=== PATIENT | female | born 1935 | race Caucasian/White ===

== ENCOUNTER 2016-04-03 07:59 | Outpatient (CLI) | payer MEDICARE, OTHER ==
[2016-01-23 05:16] VITALS: BP 134/72
[2016-04-03 08:26] LABS: BASOPHILS % 0.2 (0.0-1.5); EOSINOPHILS % 1.5 % (0.0-6.8); LYMPHOCYTES # 1.6 # k/uL (0.6-4.0); MEAN CORPUSCULAR HEMOGLOBIN 28.4 pg (28.0-34.0); MONOCYTES # 0.3 # k/uL (0.0-0.9); MONOCYTES % 5.3 % (0.0-11.0); NEUTROPHILS # 3.9 # k/uL (1.4-7.7)
[2016-04-03 08:59] LABS: eGFR (African) > 60; eGFR (Non-African) > 60
--- NOTE | 2016-04-03 09:24 | Diagnostic Imaging Report ---
[facility] [address] [facility].[address] 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 FINDINGS: Examination of the chest in PA and lateral views demonstrates the lungs to be hyperinflated with increase in the AP diameter of the chest consistent with emphysema. Cardiac silhouette is within normal limits and the aorta is atherosclerotic. Transvenous pacemaker overlies the left hemithorax with leads overlying the right atrium and right ventricle. Lungs are free of coalescent infiltrate. IMPRESSION: Emphysema. Aortic atherosclerosis. Bipolar pacemaker. Electronically signed on Apr 03, 2016 8:39:48 AM [employer] by: Hemant CLAY
== END 2016-04-03 08:00 ==
LOC: LAB 07:59
PROVIDERS: ATTEND Surgery
DX: C49.A0 Gastrointestinal stromal tumor, unspecified site (principal); I48.91 Unspecified atrial fibrillation; J43.9 Emphysema, unspecified; I70.0 Atherosclerosis of aorta; Z95.0 Presence of cardiac pacemaker
CPT/HCPCS: 36415; 71020; 80053; 85025; 85610

== ENCOUNTER 2016-04-15 12:45 | Emergency (ER) | payer MEDICARE, OTHER ==
--- NOTE | 2016-04-15 13:28 | ED Physician Documentation ---
General Adult - HISTORIAN Historian: patient - HPI Stated Complaint: Burning with Urination Chief Complaint: General Adult Onset: hours (started today.) Timing: still present, pain lasting Further Comments: yes (patient has had some problems wit hematuria for some time. Recently has seen a urologist and found to have some tumors on her bladder. Has had some scrpaing done but no definitive diagnosis made. Patient is scheduled ot have some more procedures done in 4 days. Today started to have some dysuria and is concerned that hse might have an UTI.) - ROS CONST: no problems. denies: fever, chills - PAST HX Past History: A-Fib, other (HTN, bladder cander, TIA, PVD, vertigo) Surgeries/Procedures: other (left carotid endarterectomy, right carotid endaterectomy, breast bx, cataract extraction, pacemaker placement) Immunizations: referred to PCP Allergies/Adverse Reactions: Allergies Allergy/AdvReac Type Severity Reaction Status Date / Time naproxen [From Naprosyn] Allergy Verified 04/15/16 13:20 Penicillins Allergy Rash Verified 04/15/16 13:20 Home Medications: Ambulatory Orders Medication Instructions Recorded Ciprofloxacin HCl [Cipro] 250 mg PO BID #14 tablet 04/15/16 - SOCIAL HX Smoking History: non-smoker Alcohol Use: none Drug Use: none - FAMILY HX Family History: No - VITAL SIGNS Vital Signs: Vital Signs Temp Pulse Resp BP Pulse Ox 97 F L 88 18 180/99 97 04/15/16 12:45 04/15/16 12:45 04/15/16 12:45 04/15/16 12:45 04/15/16 12:45 - REVIEWED ASSESSMENTS Nursing Assessment Reviewed: Yes Vitals Reviewed: Yes General Adult Physical Exam - PHYSICAL EXAM GENERAL APPEARANCE: no distress NECK: normal inspection, supple RESPIRATORY: no resp distress, chest non-tender, breath sounds normal. No: wheezes, rales, rhonchi CVS: reg rate & rhythm, heart sounds normal, equal pulses ABDOMEN: soft, no organomegaly, normal bowel sounds, no abdominal bruit, no distension BACK: no CVA tenderness NEURO: oriented X3, mood/affect nml Discharge Clincal Impression: Dysuria Prescriptions: Ciprofloxacin HCl [Cipro] 250 mg PO BID #14 tablet Referrals: Donnell Gutierrez MD [Primary Care Provider] - 2 Days Additional Instructions: Drink a lot of fluids. Take Cipro as directed. Home Medications: Ambulatory Orders Ciprofloxacin HCl [Cipro] 250 mg PO BID #14 tablet 04/15/16 Condition: Stable Disposition: HOME, SELF-CARE Decision to Admit: NO Date of Decison to Admit: 04/15/16 Decision Time: 14:10
[2016-04-15 14:11] VITALS: BP 160/58
[2016-04-15 19:44] LABS: APPEARANCE,URINE CLEAR (CLEAR); COLOR,URINE YELLOW (YELLOW); OCCULT BLOOD,URINE 2+ (NEGATIVE); PH URINE 6.5 (5.0 - 8.0); UROBILINOGEN URINE 0.2 Eu (0.2-1.0)
== END 2016-04-15 14:08 | disposition home or self-care (01) ==
LOC: ED 12:45
DX: R30.0 Dysuria (principal)
CPT/HCPCS: 81002; 99283

== ENCOUNTER 2017-10-12 15:29 | Outpatient (CLI) | payer MEDICARE, OTHER | END 2017-10-12 15:32 | LOC: LABRHC 15:29 | PROVIDERS: ATTEND Family Medicine | DX: N39.0 Urinary tract infection, site not specified (principal) | CPT/HCPCS: 87086 ==

== ENCOUNTER 2018-10-13 09:18 | Emergency (ER) | payer MEDICARE, OTHER ==
[2018-10-13] MEDS ORDERED: DIPH,PERTUSS(ACELL),TET VAC/PF 0.5 ML DISP.SYRIN IM ONE (09:42)
[2018-10-13] MEDS ORDERED: ACETAMINOPHEN 325 MG TABLET PO ONE (10:31)
--- NOTE | 2018-10-13 10:31 | ED Physician Documentation ---
Fall - HISTORIAN Historian: patient, child (DAUGHTER) - HPI Chief Complaint: Fall Additional Information: Patient is an 83-year-old female who presents to the ER with family s/p fall. Patient states that she was walking down the stairs on her way to [employer] and lost her balance and fell face first. She has swelling to the forehead, abrasion to the nose, skin tear to the left hand. Abrasion to the left thigh with tenderness. Denies hip pain, chest pain, or neck pain. Onset: just prior to arrival (30 min [employer]) Where: home Context: slipped r: moderate Associated Symptoms:: no loss of consciousness Location of Pain/Injury: head (forehead, abrasion to the nose), lower extremity (left thigh) Injury to Right Extremity: none Injury to Left Extremity: hand (skin tear/abrasion) - ROS CONST: no problems NEURO: denies: dizziness MS/SKIN/LYMPH: denies: weakness, neck pain, back pain, ankle swelling EYES/ENT: none CVS/RESP: none GI/: denies: nausea, vomiting - PAST HX Past History: A-Fib, other (HTN, Bladder CA, TIA, PVD, Vertigo) Immunizations: UTD. denies: tetanus Allergies/Adverse Reactions: Allergies Allergy/AdvReac Type Severity Reaction Status Date / Time naproxen [From Naprosyn] Allergy Verified 10/13/18 10:45 Penicillins Allergy Rash Verified 10/13/18 10:45 Home Medications: Ambulatory Orders Medication Instructions Recorded Solifenacin Succinate [Vesicare] 5 mg PO DAILY 10/13/18 - SOCIAL HX Smoking History: non-smoker Alcohol Use: none Drug Use: none - FAMILY HX Family History: none - VITAL SIGNS Vital Signs: Vital Signs Temp Pulse Resp BP Pulse Ox 160/58 04/15/16 14:08 - REVIEWED ASSESSMENTS Nursing Assessment Reviewed: Yes Vitals Reviewed: Yes ED Results Lab/Radiology - Radiology Radiology Impressions: EXAMINATION: CT BRAIN W/O CONTRAST HISTORY: FALL THIS MORNING, SEVERE FRONTAL SWELLING, PT STATES HX OF VERTIGO (Hx) / ITS.REASON fall with frontal head injury- no loc- hematoma Note time : 10/13/2018 10:27: 57 AM User : Candelaria Abarca FALL THIS MORNING, SEVERE FRONTAL SWELLING, PT STATES HX OF VERTIGO (DICOM Hx) (DICOM Hx) TECHNIQUE: CT of the head was performed without contrast according to standard protocol. COMPARISON: None FINDINGS: No acute intra- or extra-axial fluid collections are identified. There is mild cerebral volume loss with associated ex vacuo ventricular dilatation. The basilar cisterns are patent. No mass effect or midline shift is seen. The diaz- white matter differentiation is normal. Periventricular white matter hypoattenuation likely represents sequelae of chronic small vessel disease. There is vascular calcification of the carotid siphons. Other than bilateral cataract extractions, the visible portions of the orbits, paranasal sinuses, and mastoids appear normal. No acute fracture is identified. There is right forehead soft tissue swelling. IMPRESSION: 1. No acute intracranial process. EXAMINATION: LT FEMUR 2VIEWS HISTORY: FALL THIS MORNING (Hx) / Note time : 10/13/2018 10:28:23 AM User : Candelaria Abarca FALL THIS MORNING (DICOM Hx) (DICOM Hx) COMPARISON: None FINDINGS: No acute fracture is identified. No soft tissue swelling is seen. IMPRESSION: No acute fracture identified. EXAMINATION: WRIST 3 VIEWS OR MORE HISTORY: FALL THIS MORNING (Hx) / Note time : 10/13/2018 10:28:34 AM User : Candelaria Abarca FALL THIS (DICOM Hx) (DICOM Hx) COMPARISON: None FINDINGS: The osseous structures are intact and well aligned without acute fracture or di slocation. The joint spaces are preserved. The bones are demineralized. No soft tissue swelling is seen. IMPRESSION: No acute fracture or dislocation identified. EXAMINATION: HAND 3 VIEWS OR MORE HISTORY: FALL THIS (Hx) / Note time : 10/13/2018 10:28:46 AM User : Candelaria Abarca FALL (DICOM Hx) (DICOM Hx) COMPARISON: None FINDINGS: The osseous structures are intact and well aligned without acute fracture or dislocation. There is mild osteoarthritis. The bones are demineralized. No soft tissue swelling is seen. IMPRESSION: No acute fracture or dislocation identified. - Orders Orders: ED Orders Category Date Time Status Apply/change dressing NOW Care 10/13/18 09:41 Active Cleanse with NS and Chlorhexid 1T Care 10/13/18 09:[address] BRAIN W/O CONTRAST Stat Exams 10/13/18 Ordered HAND 3 VIEWS OR MORE [RAD] Stat Exams 10/13/18 Ordered LT FEMUR 2VIEWS [RAD] Stat Exams 10/13/18 Ordered WRIST 3 VIEWS OR MORE [RAD] Stat Exams 10/13/18 Ordered Diph,Pertuss(Acell),Tet Vac/Pf [Adacel] Med 10/13/18 09:42 Discontinued 0.5 ml IM .ONCE ONE Fall Physical Exam - Physical Exam General Appearance: alert, mild distress Head: trauma (goose egg (swelling/bruising) to the forehead) Neck: non-tender Eye: TIM, lids & conjunct. nml ENT: nml external inspection, no dental injury, no oral injury, airway nml Resp/CVS: chest non-tender, no ecchymosis, breath sounds nml, heart sounds nml Abdomen: soft, normal bowel sounds Neuro: oriented x3, CN's nml as tested, sensation nml, motor nml, mood/affect nml, social media intern nml, social media intern symmetrical Skin: color nml, ecchymosis (forehead, nose; abrasion/skin tear to the left hand; abrasion to the left thigh) Back: normal inspection Extremities: atraumatic, pelvis stable, hips non-tender, no pedal edema, nml ROM, nml color/temp Joint: joints nml, nml ROM - Mika Coma Score Eyes Open: Spontaneous Speech: Oriented Motor: Obeys Commands Discharge Clincal Impression: Contusion of head, Skin tear of left hand without complication, Contusion of left thigh Referrals: Donnell Gutierrez MD [Primary Care Provider] - 2 Days Additional Instructions: HEAD INJURY AFTERCARE May take Tylenol for headache as needed Home and rest Apply ice pack to swelling Change positions slowly- may experience dizziness Rest/Sleep with head slightly elevated to decrease swelling Follow up with PCP next week for re-evaluation [facility] Keep abrasions clean and dry May use triple antibiotic ointment and dressing to prevent infection Condition: Good Disposition: 01 HOME, SELF-CARE Decision to Admit: NO Decision Time: 11:52
[2018-10-13 11:12] VITALS: BP 172/71
--- NOTE | 2018-10-13 12:02 | Diagnostic Imaging Report ---
TOSHA MITCHELL [facility] [address] [address] Report Submission Date: Oct 13, 2018 10:35:59 AM CDT Patient Study Name: BATOOL MAGAÑA Date: Oct 13, 2018 10:00:14 AM CDT Modality Type: DX Gender: F Description: WRIST 3 VIEWS OR MORE : 31 Institution: [facility] Physician: TOSHA MITCHELL EXAMINATION: WRIST 3 VIEWS OR MORE HISTORY: FALL THIS MORNING (Hx) / Note time : 10/13/2018 10:28:34 AM User : Candelaria Abarca FALL THIS (DICOM Hx) (DICOM Hx) COMPARISON: None FINDINGS: The osseous structures are intact and well aligned without acute fracture or dislocation. The joint spaces are preserved. The bones are demineralized. No soft tissue swelling is seen. IMPRESSION: No acute fracture or dislocation identified. Electronically signed on Oct 13, 2018 10:35:59 AM CDT by: Rolf CLAY
--- NOTE | 2018-10-13 12:03 | Diagnostic Imaging Report ---
TOSHA MITCHELL [facility] [address] [address] Report Submission Date: Oct 13, 2018 10:36:41 AM CDT Patient Study Name: BATOOL MAGAÑA Date: Oct 13, 2018 10:00:14 AM CDT Modality Type: DX Gender: F Description: HAND 3 VIEWS OR MORE : 31 Institution: [facility] Physician: TOSHA MITCHELL EXAMINATION: HAND 3 VIEWS OR MORE HISTORY: FALL THIS MORNING (Hx) / Note time : 10/13/2018 10:28:46 AM User : Candelaria Abarca FALL THIS (DICOM Hx) (DICOM Hx) COMPARISON: None FINDINGS: The osseous structures are intact and well aligned without acute fracture or dislocation. There is mild osteoarthritis. The bones are demineralized. No soft tissue swelling is seen. IMPRESSION: No acute fracture or dislocation identified. Electronically signed on Oct 13, 2018 10:36:41 AM CDT by: Rolf CLAY
--- NOTE | 2018-10-13 12:05 | Diagnostic Imaging Report ---
TOSHA MITCHELL [facility] [address] [facility] [address] [place] [address]. [address] Report Submission Date: Oct 13, 2018 10:34:53 AM CDT Patient Study Name: BATOOL MAGAÑA Date: Oct 13, 2018 9:51:43 AM CDT Modality Type: CT\SR Gender: F Description: CT BRAIN W/O CONTRAST : 31 Institution: [facility] Physician: TOSHA MITCHELL EXAMINATION: CT BRAIN W/O CONTRAST HISTORY: FALL THIS MORNING, SEVERE FRONTAL SWELLING, PT STATES HX OF VERTIGO (Hx) / ITS.REASON fall with frontal head injury- no loc- hematoma Note time : 10/13/2018 10:27:57 AM User : Candelaria Abarca FALL THIS MORNING, SEVERE FRONTAL SWELLING, PT STATES HX OF VERTIGO (DICOM Hx) (DICOM Hx) TECHNIQUE: CT of the head was performed without contrast according to standard protocol. COMPARISON: None FINDINGS: No acute intra- or extra-axial fluid collections are identified. There is mild cerebral volume loss with associated ex vacuo ventricular dilatation. The basilar cisterns are patent. No mass effect or midline shift is seen. The diaz- white matter differentiation is normal. Periventricular white matter hypoattenuation likely represents sequelae of chronic small vessel disease. There is vascular calcification of the carotid siphons. Other than bilateral cataract extractions, the visible portions of the orbits, paranasal sinuses, and mastoids appear normal. No acute fracture is identified. There is right forehead soft tissue swelling. IMPRESSION: 1. No acute intracranial process. Electronically signed on Oct 13, 2018 10:34:53 AM CDT by: Rolf CLAY
--- NOTE | 2018-10-13 12:07 | Diagnostic Imaging Report ---
TOSHA MITCHELL [facility] [address] [address] Report Submission Date: Oct 13, 2018 10:35:30 AM CDT Patient Study Name: BATOOL MAGAÑA Date: Oct 13, 2018 10:00:14 AM CDT Modality Type: DX Gender: F Description: LT FEMUR 2VIEWS : 31 Institution: [facility] Physician: TOSHA MITCHELL EXAMINATION: LT FEMUR 2VIEWS HISTORY: FALL THIS MORNING (Hx) / Note time : 10/13/2018 10:28:23 AM User : Candelaria Abarca FALL THIS MORNING (DICOM Hx) (DICOM Hx) COMPARISON: None FINDINGS: No acute fracture is identified. No soft tissue swelling is seen. IMPRESSION: No acute fracture identified. Electronically signed on Oct 13, 2018 10:35:30 AM CDT by: Rolf CLAY
== END 2018-10-13 11:05 | disposition home or self-care (01) ==
LOC: ED 09:18
DX: S60.222A Contusion of left hand, initial encounter (principal); S70.12XA Contusion of left thigh, initial encounter; S61.412A Laceration without foreign body of left hand, initial encounter; W10.9XXA Fall (on) (from) unspecified stairs and steps, initial encounter; Y93.01 Activity, walking, marching and hiking; Y92.22 Religious institution as the place of occurrence of the external cause
CPT/HCPCS: 70450; 73110; 73130; 73552; 90471; 90715; 99284

== ENCOUNTER 2018-10-17 12:49 | Emergency (ER) | payer MEDICARE, OTHER ==
--- NOTE | 2018-10-17 12:52 | ED Physician Documentation ---
General Adult - HISTORIAN Historian: patient - HPI Stated Complaint: fall and left elbow pain Chief Complaint: Fall Onset: hours (2) Timing: still present Severity: mild Further Comments: yes (She did fall Sunday and hit her face and head. Today she did trip and fell hitting her left elbow and knee . Denies any dizziness. No LOC.) Last known Well Code/Unknown Code: Unknown - ROS CONST: no problems EYES/ENT: none CVS/RESP: none GI/: none MS/SKIN/LYMPH: none - PAST HX Past History: other (hyperlipidemia , Hypothyroidism ) Immunizations: UTD Allergies/Adverse Reactions: Allergies Allergy/AdvReac Type Severity Reaction Status Date / Time naproxen [From Naprosyn] Allergy Verified 10/13/18 10:45 Penicillins Allergy Rash Verified 10/13/18 10:45 Home Medications: Ambulatory Orders Medication Instructions Recorded Solifenacin Succinate [Vesicare] 5 mg PO DAILY 10/13/18 Gabapentin 1 tab PO DAILY 10/17/18 - SOCIAL HX Smoking History: non-smoker Alcohol Use: none Drug Use: none - FAMILY HX Family History: No - VITAL SIGNS Vital Signs: Vital Signs Temp Pulse Resp BP Pulse Ox 172/71 10/13/18 11:05 - REVIEWED ASSESSMENTS Nursing Assessment Reviewed: Yes Vitals Reviewed: Yes Progress - Progress Progress: 1430: discussed results with pt. She is wanting transfer to [place] if needed DG 1515: Discussed case with Pili at [facility] for possible transfer DG 1525: Dr Frausto is accepting pt to [facility] DG 1527: Pain is 4/10 DG General Adult Physical Exam - PHYSICAL EXAM GENERAL APPEARANCE: no distress EENT: eye inspection normal, ENT inspection normal, pharynx normal, no signs of dehydration NECK: normal inspection RESPIRATORY: no resp distress, chest non-tender, breath sounds normal CVS: reg rate & rhythm, heart sounds normal ABDOMEN: soft, normal bowel sounds, no distension, non-tender BACK: normal inspection SKIN: warm/dry, other (swelling on left elbow 2 small skin tears Decreased ROM due to pain left elbow. Pain left knee 3 cm bruise on lateral side of knee . old bruise over entire right side of face and forehead ) EXTREMITIES: non-tender, tenderness (knee --- swelling on left elbow two small skin tears. Pulses + cap refill + and helmet hat puncher on hand equal. Decreased and painful ROM with elbow movement ) NEURO: oriented X3 Discharge Clincal Impression: Humeral distal fracture Qualifiers: Encounter type: initial encounter Fracture type: closed Fracture morphology: other fracture Fracture alignment: nondisplaced Laterality: left Qualified Code(s): S42.495A - Other nondisplaced fracture of lower end of left humerus, initial encounter for closed fracture Referrals: Donnell Gutierrez MD [Primary Care Provider] - 2 Days Condition: Fair Disposition: 02 XFER SHT-TRM HOSP Decision to Admit: NO Date of Decison to Admit: 10/17/18 Decision Time: 15:30
[2018-10-17] MEDS ORDERED: fentaNYL CITRATE/PF 100 MCG/2 ML INJ. IV ONE (14:09)
[2018-10-17] MEDS ORDERED: 0.9 % SODIUM CHLORIDE 1,000 ML IV ONE (14:09)
[2018-10-17 14:31] LABS: eGFR (Non-African) > 60
[2018-10-17 14:40] LABS: BASOPHILS % 0.4 % (0.0-1.5); NEUTROPHILS # 8.8 # k/uL (1.4-7.7)
[2018-10-17] MEDS ORDERED: fentaNYL CITRATE/PF 100 MCG/2 ML INJ. IVP ONE (16:57)
[2018-10-17 17:10] VITALS: BP 149/53
--- NOTE | 2018-10-17 19:43 | Diagnostic Imaging Report ---
EDGAR CHINCHILLA [facility] [address] [facility] [address] [address] [place], [place]. [address] Report Submission Date: Oct 17, 2018 2:02:31 PM CDT Patient Study Name: BATOOL MAGAÑA Date: Oct 17, 2018 1:15:18 PM CDT Modality Type: DX Gender: F Description: FOREARM 2 VIEWS : 31 Institution: [facility] Physician: EDGAR CHINCHILLA Examination: Plain film left forearm History: BRUISING AND CONTUSIONS AFTER FALL TODAY Comparison exams: None available Findings: 2 views of the left radius and ulna demonstrates osteopenia. No evidence for radial or ulnar fracture line. Articular degenerative changes. Fracture lucency with displacement involving the distal humerus extending to the articular surface. Overlying soft tissue swelling. Impression: Complex distal humeral fracture. Electronically signed on Oct 17, 2018 2:02:31 PM CDT by: Luis CLAY
--- NOTE | 2018-10-17 19:43 | Diagnostic Imaging Report ---
EDGAR CHINCHILLA [facility] [address] [facility] [address] [place], [place]. [address] Report Submission Date: Oct 17, 2018 2:02:37 PM CDT Patient Study Name: BATOOL MAGAÑA Date: Oct 17, 2018 1:15:18 PM CDT Modality Type: DX Gender: F Description: KNEE 3 VIEWS : 31 Institution: [facility] Physician: EDGAR CHINCHILLA Examination: Plain film left knee History: BRUISING AFTER FALL TODAY Findings: 3 views of the left knee demonstrates osteopenia. Mild degenerative spurring. No fracture. No dislocation. No joint effusion. No soft tissue irregularity. Impression: Osteopenia and mild degenerative changes. No acute appearing osseous abnormality Electronically signed on Oct 17, 2018 2:02:37 PM CDT by: Luis CLAY
--- NOTE | 2018-10-17 19:43 | Diagnostic Imaging Report ---
EDGAR CHINCHILLA [facility] [address] [facility] [address] [place], [place]. [address] Report Submission Date: Oct 17, 2018 2:02:26 PM CDT Patient Study Name: BATOOL MAGAÑA Date: Oct 17, 2018 1:15:16 PM CDT Modality Type: DX Gender: F Description: ELBOW 3 VIEWS : 31 Institution: [facility] Physician: EDGAR CHINCHILLA Examination: Plain film left elbow History: BRUISING AND CONTUSIONS AFTER FALL TODAY Comparison exams: None provided Findings: 2 views of the left elbow demonstrates osteopenia. Fracture lucency with displacement involving the distal humerus extending to the articular surface. Overlying soft tissue swelling. Radius and ulna appear to be intact. Impression: Complex distal humeral fracture. Electronically signed on Oct 17, 2018 2:02:26 PM CDT by: Luis CLAY
== END 2018-10-17 17:00 | disposition short-term general hospital (02) ==
LOC: ED 12:49
DX: S42.495A Other nondisplaced fracture of lower end of left humerus, initial encounter for closed fracture (principal); W01.10XA Fall on same level from slipping, tripping and stumbling with subsequent striking against unspecified object, initial encounter
CPT/HCPCS: 73080; 73090; 73562; 80053; 85025; 85610; 96361; 96374; 96376; 99285; J3010; J7030; S1016

== ENCOUNTER 2018-10-21 15:05 | Inpatient (IN) | payer MEDICARE, OTHER ==
[2018-10-21 15:53] VITALS: BMI 20.9
--- NOTE | 2018-10-21 18:28 | History and Physical Report ---
History of Present Illnes - History of Present Illness Reason for Visit: PT and OT post L humeral fx History of Present Illness: 83-year-old white female who on fell and sustained a left distal humeral fracture. Patient has fallen on the previous day and sustained some patient contusions. Patient does have a vestibular disturbance and does have fairly frequent falls related to this. Patient is currently living at home by herself does provide for all of her daily living cares herself him. Patient underwent an open reduction until fixation of her comminuted intra-articular distal fracture. Patient did not have any intraoperative for postoperative complications. Patient was transferred to this institution for further rehab services. Patient is right handed - Past Medical History Cardiac: HTN, Other (tachy/bradycardia syndrome) [employer]: CVA Heme/Onc: Cancer (colon) ENT: Other (vetibular dysfunction) - Past Surgical History Past Surgical History: Cataract Removal, Other (carotid endarterectomy, D&C, colectomy, pacemaker placement) - Past Family History Mother Family History: DM, Father Family History: CVA, 7 brothers Family History: DM 7 sisters Family History: DM - Past Social History Smoke: No Occupation: retired Alcohol: None Drugs: None Lives: Alone Domestic Violence: Negative - Health Maintenance Health Maintenance: Cholesterol, Influenza Vaccine, Pneumococcal Vaccine Influenza Vaccine: Current for this Influenza Season Pneumonia Vaccine: Yes (Pneumo vac 13 and 23) Resuscitation Status: Resusciation Status Resuscitation Status Do Not Resuscitate - Unable to Obtain History Unable to Obtain: No Review of Systems - Review of Systems Constitutional: negative: Fever, Chills Eyes: negative: vision change, conjunctivae inflammation ENT: Other (vertigo). negative: Ear Pain, Ear Discharge Respiratory: negative: Cough, Dry, Shortness of Breath, Hemoptysis, SOB with Excertion, Pleuritic Pain Cardiovascular: Palpitations, Orthopnea. negative: Chest Pain Gastrointestinal: Constipation. negative: Nausea, Vomiting, Abdominal Pain, Diarrhea, Melena, Hematochezia Genitourinary: negative: Dysuria, Frequency, Incontinence, Hematuria, Retention Musculoskeletal: Neck Pain (improved) Skin: Other (multiple echymotic area to arms and face). negative: Rash Neurological: negative: Weakness, Numbness, Change in Speech, Seizures - Medications/Allergies Allergies/Adverse Reactions: Allergies Allergy/AdvReac Type Severity Reaction Status Date / Time naproxen [From Naprosyn] Allergy Verified 10/13/18 10:45 Penicillins Allergy Rash Verified 10/13/18 10:45 Home Medications: Home Medications Acetaminophen [Pain Relief] 1,000 mg PO Q8 PRN 10/21/18 Aspirin 81 mg PO QDAY 10/21/18 Calcium Carbonate/Vitamin D3 [Calcium 250-D Tablet] 1 each PO BID 10/21/18 Cholecalciferol (Vitamin D3) [Vitamin D3] 2,000 unit PO DAILY 10/21/18 Citalopram Hydrobromide [Celexa] 20 mg PO QD 10/21/18 Clonazepam 0.5 mg PO TID PRN 10/21/18 Fesoterodine Fumarate [Toviaz] 4 mg PO HS 10/21/18 Multivit-Min/Iron/Folic/Lutein [Centrum Silver Women Tablet] 1 each PO DAILY 10/21/18 Current Inpatient Medications: Current Inpatient Medications Acetaminophen (Tylenol Extra Strength) 1,000 mg PO Q8 PRN PRN Reason: MILD PAIN OR TEMP > 101 Amlodipine Besylate (Norvasc) 2.5 mg PO DAILY [facility] Aspirin (Leda) 81 mg PO QDAY [facility] Atorvastatin Calcium (Lipitor) 20 mg PO DAILY [facility] Cholecalciferol (Vitamin D-3) 2,000 unit PO DAILY [facility] Citalopram Hydrobromide (Celexa) 20 mg PO QD [facility] Clonazepam (Klonopin) 0.5 mg PO TID PRN PRN Reason: Anxiety Gabapentin (Neurontin) mg PO DAILY [facility] Multivitamins (Tab-A-Renae) 1 each PO DAILY [facility] Exam - Exam Vital Signs: Vital Signs (72 hours) 10/21/18 10/21/18 15:43 15:45 Temperature 99.2 F 99.2 F Pulse Rate [ 94 H 94 H Right] Respiratory 22 22 Rate Blood Pressure 118/94 118/94 [Right Arm] O2 Sat by Pulse 97 97 Oximetry General: Alert, Oriented to Person, Oriented to Place, Oriented to Time, Cooperative, No acute distress HEENT: Atraumatic, PERRLA, Mouth Mucous membr. moist/Ray, Dentition Normal, Decreased Hearing Acuity Neck: Normal Range of Motion, Other (no JVD). No: Stridor, Lymphadenopathy Carotids: WNL Thyroid: WNL Lungs: Clear to auscultation, Normal air movement, Speaks full Sentences. No: Wheezes, Rales, Rhonchi Cardiovascular: Regular rate, Normal S1, Normal S2, No murmurs Peripheral Edema: none Peripheral Pulses: intact Abdomen: Normal bowel sounds, Soft, No tenderness, No hepatospenomegaly, No masses. No: Distended Integumentary: Normal, [place], Warm, Other (swelling and ecchymosis to left hand, resolving contusion/ecchymosis to the periorbital area of the face) Extremities: No clubbing, No cyanosis, No edema, Normal pulses Neurological: Normal gait, Normal speech, Strength Equal Bilat, Normal tone, Sensation intact, Cranial nerves 3-12 NL, Reflexes 2+ Psych/Mental Status: Mental status NL, Mood NL, Appropriate Affect, Intact Judgment Assessment/Plan - Assessment/Plan (1) Closed left humeral fracture Status: Acute Current Visit: Yes Qualifiers: Fracture morphology: comminuted Fracture healing: with routine healing (2) Essential hypertension Status: Chronic Current Visit: Yes Plan: continue home meds (3) Sick sinus syndrome Status: Acute Current Visit: Yes (4) History of colon cancer Status: Resolved Current Visit: Yes (5) Status post CVA Status: Resolved Current Visit: Yes (6) Vestibular dysfunction Status: Acute Current Visit: Yes Qualifiers: Laterality: unspecified laterality Qualified Code(s): H83.2X9 - Labyrinthine dysfunction, unspecified ear Narrative Support Text: continue with supportive care VTE Assessment - RISK FACTOR SCORE VTE RISK FACTOR SCORES: AGE OVER 60 YEARS, ANTICIPATED BED CONFINEMENT OR IMMOBILIZATION > 24 HOURS - RISK VTE MODERATE RISK: SCORE OF 2 (RISK PROXIMAL DVT 2-4%) PROPHYAXIS NEEDED
[2018-10-21] MEDS: CITALOPRAM HYDROBROMIDE 20 MG TABLET PO SCH (18:45)
[2018-10-22] MEDS ORDERED: ASPIRIN EC 81 MG TABLET.DR PO ONE (07:31)
[2018-10-22] MEDS ORDERED: PANTOPRAZOLE SODIUM 40 MG TABLET.DR PO ONE (08:17)
[2018-10-22] MEDS ORDERED: IRON PO SCH (09:00)
[2018-10-22] MEDS ORDERED: ATORVASTATIN CALCIUM 20 MG TABLET PO SCH (09:00)
[2018-10-22] MEDS ORDERED: LUTEIN PO SCH (09:00)
[2018-10-22] MEDS ORDERED: [UNRECOGNIZED DRUG - OTHER] PO SCH (09:00)
[2018-10-22] MEDS ORDERED: FOLIC PO SCH (09:00)
[2018-10-22] MEDS ORDERED: MULTIVIT MIN PO SCH (09:00)
[2018-10-22] MEDS: MULTIVITAMIN 1 EACH TABLET PO SCH (09:04)
[2018-10-22] MEDS: CHOLECALCIFEROL (VIT-D3) 1,000 UNIT TABLET PO SCH (09:04)
[2018-10-22] MEDS: ASPIRIN 81 MG CHEW TAB PO SCH (09:04)
[2018-10-22] MEDS: amLODIPine BESYLATE 5 MG TABLET PO SCH (09:05)
[2018-10-22] MEDS: ENOXAPARIN SODIUM 30 MG/0.3 ML DISP.SYRIN SQ SCH (18:46)
[2018-10-22] MEDS: CITALOPRAM HYDROBROMIDE 20 MG TABLET PO SCH (18:47)
[2018-10-22] MEDS: clonazePAM 0.5 MG TABLET PO PRN (20:28)
[2018-10-22] MEDS: ATORVASTATIN CALCIUM 20 MG TABLET PO SCH (20:28)
[2018-10-23] MEDS: PANTOPRAZOLE SODIUM 40 MG TABLET.DR PO SCH (06:08)
[2018-10-23] MEDS: ENOXAPARIN SODIUM 30 MG/0.3 ML DISP.SYRIN SQ SCH (09:24)
[2018-10-23] MEDS: MULTIVITAMIN 1 EACH TABLET PO SCH (09:24)
[2018-10-23] MEDS: ASPIRIN 81 MG CHEW TAB PO SCH (09:24)
[2018-10-23] MEDS: amLODIPine BESYLATE 5 MG TABLET PO SCH (09:24)
[2018-10-23] MEDS: CHOLECALCIFEROL (VIT-D3) 1,000 UNIT TABLET PO SCH (09:24)
[2018-10-23] MEDS: GABAPENTIN 100 MG CAPSULE PO SCH ×2 (13:38→19:16)
[2018-10-23] MEDS: CITALOPRAM HYDROBROMIDE 20 MG TABLET PO SCH (18:32)
[2018-10-23] MEDS: ATORVASTATIN CALCIUM 20 MG TABLET PO SCH (20:33)
[2018-10-23] MEDS: clonazePAM 0.5 MG TABLET PO PRN (20:33)
[2018-10-24] MEDS: PANTOPRAZOLE SODIUM 40 MG TABLET.DR PO SCH (06:00)
[2018-10-24] MEDS: CHOLECALCIFEROL (VIT-D3) 1,000 UNIT TABLET PO SCH (09:18)
[2018-10-24] MEDS: GABAPENTIN 100 MG CAPSULE PO SCH (09:18)
[2018-10-24] MEDS: amLODIPine BESYLATE 5 MG TABLET PO SCH (09:18)
[2018-10-24] MEDS: MULTIVITAMIN 1 EACH TABLET PO SCH (09:18)
[2018-10-24] MEDS: ASPIRIN 81 MG CHEW TAB PO SCH (09:18)
[2018-10-24] MEDS: ENOXAPARIN SODIUM 30 MG/0.3 ML DISP.SYRIN SQ SCH (09:18)
[2018-10-24] MEDS: CITALOPRAM HYDROBROMIDE 20 MG TABLET PO SCH (18:13)
[2018-10-24] MEDS: ATORVASTATIN CALCIUM 20 MG TABLET PO SCH (22:45)
[2018-10-24] MEDS: ACETAMINOPHEN 500 MG TABLET PO PRN (23:21)
[2018-10-25] MEDS: PANTOPRAZOLE SODIUM 40 MG TABLET.DR PO SCH (06:25)
[2018-10-25] MEDS: ASPIRIN 81 MG CHEW TAB PO SCH (08:39)
[2018-10-25] MEDS: ENOXAPARIN SODIUM 30 MG/0.3 ML DISP.SYRIN SQ SCH (08:40)
[2018-10-25] MEDS: amLODIPine BESYLATE 5 MG TABLET PO SCH (08:40)
[2018-10-25] MEDS: GABAPENTIN 100 MG CAPSULE PO SCH (08:40)
[2018-10-25] MEDS: MULTIVITAMIN 1 EACH TABLET PO SCH (08:40)
[2018-10-25] MEDS: CHOLECALCIFEROL (VIT-D3) 1,000 UNIT TABLET PO SCH (08:45)
[2018-10-25] MEDS: CITALOPRAM HYDROBROMIDE 20 MG TABLET PO SCH (18:00)
[2018-10-25] MEDS: ATORVASTATIN CALCIUM 20 MG TABLET PO SCH (20:00)
[2018-10-25] MEDS: ACETAMINOPHEN 500 MG TABLET PO PRN (21:35)
[2018-10-26] MEDS: PANTOPRAZOLE SODIUM 40 MG TABLET.DR PO SCH (05:58)
[2018-10-26] MEDS: amLODIPine BESYLATE 5 MG TABLET PO SCH (08:43)
[2018-10-26] MEDS: ASPIRIN 81 MG CHEW TAB PO SCH (08:44)
[2018-10-26] MEDS: CHOLECALCIFEROL (VIT-D3) 1,000 UNIT TABLET PO SCH (08:44)
[2018-10-26] MEDS: MULTIVITAMIN 1 EACH TABLET PO SCH (08:44)
[2018-10-26] MEDS: GABAPENTIN 100 MG CAPSULE PO SCH (08:45)
[2018-10-26] MEDS: ENOXAPARIN SODIUM 30 MG/0.3 ML DISP.SYRIN SQ SCH (08:46)
[2018-10-26] MEDS: CITALOPRAM HYDROBROMIDE 20 MG TABLET PO SCH (18:16)
[2018-10-26] MEDS: ATORVASTATIN CALCIUM 20 MG TABLET PO SCH (20:45)
[2018-10-26] MEDS: ACETAMINOPHEN 500 MG TABLET PO PRN (20:45)
[2018-10-27] MEDS: PANTOPRAZOLE SODIUM 40 MG TABLET.DR PO SCH (06:10)
[2018-10-27] MEDS: ASPIRIN 81 MG CHEW TAB PO SCH (08:34)
[2018-10-27] MEDS: CHOLECALCIFEROL (VIT-D3) 1,000 UNIT TABLET PO SCH (08:34)
[2018-10-27] MEDS: GABAPENTIN 100 MG CAPSULE PO SCH (08:34)
[2018-10-27] MEDS: ENOXAPARIN SODIUM 30 MG/0.3 ML DISP.SYRIN SQ SCH (08:34)
[2018-10-27] MEDS: MULTIVITAMIN 1 EACH TABLET PO SCH (08:34)
[2018-10-27] MEDS: amLODIPine BESYLATE 5 MG TABLET PO SCH (08:35)
[2018-10-27] MEDS: CITALOPRAM HYDROBROMIDE 20 MG TABLET PO SCH (20:05)
[2018-10-27] MEDS: ATORVASTATIN CALCIUM 20 MG TABLET PO SCH (20:05)
[2018-10-27] MEDS: ACETAMINOPHEN 500 MG TABLET PO PRN (20:05)
[2018-10-28] MEDS: PANTOPRAZOLE SODIUM 40 MG TABLET.DR PO SCH (06:31)
[2018-10-28 07:00] LABS: BASOPHILS % 0.3 % (0.0-1.5); NEUTROPHILS # 4.4 # k/uL (1.4-7.7)
[2018-10-28 07:01] LABS: eGFR (Non-African) > 60
[2018-10-28] MEDS: ASPIRIN 81 MG CHEW TAB PO SCH (09:24)
[2018-10-28] MEDS: ENOXAPARIN SODIUM 30 MG/0.3 ML DISP.SYRIN SQ SCH (09:24)
[2018-10-28] MEDS: MULTIVITAMIN 1 EACH TABLET PO SCH (09:24)
[2018-10-28] MEDS: CHOLECALCIFEROL (VIT-D3) 1,000 UNIT TABLET PO SCH (09:25)
[2018-10-28] MEDS: GABAPENTIN 100 MG CAPSULE PO SCH (09:25)
[2018-10-28] MEDS: amLODIPine BESYLATE 5 MG TABLET PO SCH (09:25)
[2018-10-28] MEDS: CITALOPRAM HYDROBROMIDE 20 MG TABLET PO SCH (18:18)
[2018-10-28] MEDS: ATORVASTATIN CALCIUM 20 MG TABLET PO SCH (20:22)
[2018-10-28] MEDS: ACETAMINOPHEN 500 MG TABLET PO PRN (20:22)
[2018-10-29] MEDS: PANTOPRAZOLE SODIUM 40 MG TABLET.DR PO SCH (06:32)
[2018-10-29] MEDS: ASPIRIN 81 MG CHEW TAB PO SCH (08:36)
[2018-10-29] MEDS: ENOXAPARIN SODIUM 30 MG/0.3 ML DISP.SYRIN SQ SCH (08:37)
[2018-10-29] MEDS: amLODIPine BESYLATE 5 MG TABLET PO SCH (08:39)
[2018-10-29] MEDS: MULTIVITAMIN 1 EACH TABLET PO SCH (08:39)
[2018-10-29] MEDS: GABAPENTIN 100 MG CAPSULE PO SCH (08:39)
[2018-10-29] MEDS: CHOLECALCIFEROL (VIT-D3) 1,000 UNIT TABLET PO SCH (08:40)
[2018-10-29] MEDS: CITALOPRAM HYDROBROMIDE 20 MG TABLET PO SCH (18:10)
[2018-10-29] MEDS: ACETAMINOPHEN 500 MG TABLET PO PRN (20:04)
[2018-10-29] MEDS: ATORVASTATIN CALCIUM 20 MG TABLET PO SCH (20:04)
[2018-10-30] MEDS: PANTOPRAZOLE SODIUM 40 MG TABLET.DR PO SCH (05:45)
[2018-10-30] MEDS: ONDANSETRON HCL 4 MG TAB.RAPDIS PO PRN (07:42)
[2018-10-30] MEDS: MULTIVITAMIN 1 EACH TABLET PO SCH (09:36)
[2018-10-30] MEDS: amLODIPine BESYLATE 5 MG TABLET PO SCH (09:36)
[2018-10-30] MEDS: ASPIRIN 81 MG CHEW TAB PO SCH (09:36)
[2018-10-30] MEDS: GABAPENTIN 100 MG CAPSULE PO SCH (09:36)
[2018-10-30] MEDS: ENOXAPARIN SODIUM 30 MG/0.3 ML DISP.SYRIN SQ SCH (09:36)
[2018-10-30] MEDS: CHOLECALCIFEROL (VIT-D3) 1,000 UNIT TABLET PO SCH (09:36)
[2018-10-30] MEDS: CITALOPRAM HYDROBROMIDE 20 MG TABLET PO SCH (18:21)
[2018-10-30] MEDS: ATORVASTATIN CALCIUM 20 MG TABLET PO SCH (21:03)
[2018-10-31] MEDS: PANTOPRAZOLE SODIUM 40 MG TABLET.DR PO SCH (06:17)
[2018-10-31] MEDS: ENOXAPARIN SODIUM 30 MG/0.3 ML DISP.SYRIN SQ SCH (08:30)
[2018-10-31] MEDS: CHOLECALCIFEROL (VIT-D3) 1,000 UNIT TABLET PO SCH (08:31)
[2018-10-31] MEDS: GABAPENTIN 100 MG CAPSULE PO SCH (08:31)
[2018-10-31] MEDS: ASPIRIN 81 MG CHEW TAB PO SCH (08:31)
[2018-10-31] MEDS: MULTIVITAMIN 1 EACH TABLET PO SCH (08:31)
[2018-10-31] MEDS: amLODIPine BESYLATE 5 MG TABLET PO SCH (08:31)
[2018-10-31] MEDS: CITALOPRAM HYDROBROMIDE 20 MG TABLET PO SCH (18:33)
[2018-10-31] MEDS: ACETAMINOPHEN 500 MG TABLET PO PRN (19:46)
[2018-10-31] MEDS: ATORVASTATIN CALCIUM 20 MG TABLET PO SCH (19:46)
[2018-11-01] MEDS: PANTOPRAZOLE SODIUM 40 MG TABLET.DR PO SCH (05:23)
[2018-11-01] MEDS: GABAPENTIN 100 MG CAPSULE PO SCH (08:03)
[2018-11-01] MEDS: ONDANSETRON HCL 4 MG TAB.RAPDIS PO PRN (08:04)
[2018-11-01] MEDS: amLODIPine BESYLATE 5 MG TABLET PO SCH (08:04)
[2018-11-01] MEDS: CHOLECALCIFEROL (VIT-D3) 1,000 UNIT TABLET PO SCH (08:05)
[2018-11-01] MEDS: ENOXAPARIN SODIUM 30 MG/0.3 ML DISP.SYRIN SQ SCH (08:06)
[2018-11-01] MEDS: ASPIRIN 81 MG CHEW TAB PO SCH (08:07)
[2018-11-01] MEDS: MULTIVITAMIN 1 EACH TABLET PO SCH (08:12)
[2018-11-01] MEDS: CITALOPRAM HYDROBROMIDE 20 MG TABLET PO SCH (17:22)
[2018-11-01] MEDS: ATORVASTATIN CALCIUM 20 MG TABLET PO SCH (21:10)
[2018-11-01] MEDS: ACETAMINOPHEN 500 MG TABLET PO PRN (21:10)
[2018-11-02] MEDS: PANTOPRAZOLE SODIUM 40 MG TABLET.DR PO SCH (06:22)
[2018-11-02] MEDS: CHOLECALCIFEROL (VIT-D3) 1,000 UNIT TABLET PO SCH (08:22)
[2018-11-02] MEDS: ACETAMINOPHEN 500 MG TABLET PO PRN ×2 (08:22→20:37)
[2018-11-02] MEDS: amLODIPine BESYLATE 5 MG TABLET PO SCH (08:23)
[2018-11-02] MEDS: ASPIRIN 81 MG CHEW TAB PO SCH (08:23)
[2018-11-02] MEDS: GABAPENTIN 100 MG CAPSULE PO SCH ×3 (08:24→18:05)
[2018-11-02] MEDS: ENOXAPARIN SODIUM 30 MG/0.3 ML DISP.SYRIN SQ SCH (08:24)
[2018-11-02] MEDS: MULTIVITAMIN 1 EACH TABLET PO SCH (08:24)
[2018-11-02] MEDS: CITALOPRAM HYDROBROMIDE 20 MG TABLET PO SCH (18:06)
[2018-11-02] MEDS: ATORVASTATIN CALCIUM 20 MG TABLET PO SCH (20:37)
[2018-11-03] MEDS: PANTOPRAZOLE SODIUM 40 MG TABLET.DR PO SCH (06:06)
[2018-11-03] MEDS: GABAPENTIN 100 MG CAPSULE PO SCH ×3 (09:15→18:24)
[2018-11-03] MEDS: ASPIRIN 81 MG CHEW TAB PO SCH (09:15)
[2018-11-03] MEDS: ENOXAPARIN SODIUM 30 MG/0.3 ML DISP.SYRIN SQ SCH (09:15)
[2018-11-03] MEDS: amLODIPine BESYLATE 5 MG TABLET PO SCH (09:15)
[2018-11-03] MEDS: CHOLECALCIFEROL (VIT-D3) 1,000 UNIT TABLET PO SCH (09:16)
[2018-11-03] MEDS: MULTIVITAMIN 1 EACH TABLET PO SCH (09:24)
[2018-11-03] MEDS: CITALOPRAM HYDROBROMIDE 20 MG TABLET PO SCH (18:24)
[2018-11-03] MEDS: ACETAMINOPHEN 500 MG TABLET PO PRN (20:52)
[2018-11-03] MEDS: ATORVASTATIN CALCIUM 20 MG TABLET PO SCH (20:52)
[2018-11-04] MEDS: PANTOPRAZOLE SODIUM 40 MG TABLET.DR PO SCH (05:41)
[2018-11-04] MEDS: MULTIVITAMIN 1 EACH TABLET PO SCH (09:09)
[2018-11-04] MEDS: GABAPENTIN 100 MG CAPSULE PO SCH ×3 (09:09→19:54)
[2018-11-04] MEDS: ENOXAPARIN SODIUM 30 MG/0.3 ML DISP.SYRIN SQ SCH (09:09)
[2018-11-04] MEDS: ASPIRIN 81 MG CHEW TAB PO SCH (09:09)
[2018-11-04] MEDS: CHOLECALCIFEROL (VIT-D3) 1,000 UNIT TABLET PO SCH (09:10)
[2018-11-04] MEDS: amLODIPine BESYLATE 5 MG TABLET PO SCH (09:10)
--- NOTE | 2018-11-04 11:32 | Inpatient Progress Note ---
Subjective - Required Recertification Statement I anticipate X number of days because-include discharge plan: 7 days - Review of Systems Events since last encounter: Patient seem to be doing fairly well at this time. Patient is ambulatory ability and ability to transfer the seem to be improving some physical and occupational therapy. Patient continues to have some intermittent dizziness. Patient stated the pain in her arm seem to be improved. Cardiovascular: Denies: Chest Pain Gastrointestinal: Denies: Nausea, Vomiting Genitourinary: Denies: Dysuria Objective - Exam Vitals and I&O: Vital Signs Temp 97.5 F L 11/04/18 08:51 Pulse 87 11/04/18 08:51 Resp 20 11/04/18 08:51 BP 97/55 11/04/18 08:51 Pulse Ox 93 11/04/18 08:51 Intake & Output 11/03/18 11/03/18 11/04/18 11:59 23:59 11:59 Intake Total 360 480 480 Balance 360 480 480 Weight 60.781 kg Intake: Oral 360 480 480 Other: Voiding Method Toilet Toilet Toilet # Bowel Movements 0 2 General: Alert, Oriented to Person, Oriented to Place, Oriented to Time, Cooperative Neck: Supple, No JVD, No thyromegaly Lungs: Clear to auscultation, Normal air movement, Speaks full Sentences Cardiovascular: Regular rate, Normal S1, Normal S2, No murmurs Abdomen: Normal bowel sounds, Soft, No tenderness, No hepatospenomegaly, No masses Extremities: Other (swelling and ecchymosis improved) Skin: Normal, [place], Warm Psych/Mental Status: Mental status NL, Mood NL, Appropriate Affect, Intact Judgment - Results Results: Laboratory Results WBC 6.20 K/ul (4.00-12.00) 10/28/18 06:20 RBC 3.35 M/ul (3.90-5.20) L 10/28/18 06:20 Hgb 9.7 g/dL (11.5-16.0) L 10/28/18 06:20 Hct 29.1 % (34.5-46.5) L 10/28/18 06:20 MCV 87.0 fl (80.0-100.0) 10/28/18 06:20 MCH 29.1 pg (28.0-34.0) 10/28/18 06:20 MCHC 33.4 g/dL (30.0-36.0) 10/28/18 06:20 RDW 13.4 % (11.3-14.3) 10/28/18 06:20 Plt Count 338 K/mm3 (130-400) 10/28/18 06:20 Neut % (Auto) 69.8 % (39.0-79.0) 10/28/18 06:20 Lymph % (Auto) 20.9 % (16.0-50.0) 10/28/18 06:20 [place] % (Auto) 7.0 % (0.0-11.0) 10/28/18 06:20 Eos % (Auto) 2.0 % (0.0-6.8) 10/28/18 06:20 Baso % (Auto) 0.3 % (0.0-1.5) 10/28/18 06:20 Neut # (Auto) 4.4 # k/uL (1.4-7.7) 10/28/18 06:20 Lymph # (Auto) 1.3 # k/uL (0.6-4.0) 10/28/18 06:20 [place] # (Auto) 0.4 # k/uL (0.0-0.9) 10/28/18 06:20 Eos # (Auto) 0.1 # k/uL (0.0-0.6) 10/28/18 06:20 Baso # (Auto) 0.0 # k/uL (0.0-0.5) 10/28/18 06:20 Sodium 139 mmol/L (137-145) 10/28/18 06:20 Potassium 3.8 mmol/L (3.5-5.1) 10/28/18 06:20 Chloride 103 mmol/L (98-107) 10/28/18 06:20 Carbon Dioxide 29 mmol/L (22-30) 10/28/18 06:20 Anion Gap 10.8 mmol/L (3-11) 10/28/18 06:20 BUN 15 mg/dL (7-17) 10/28/18 06:20 Creatinine 0.89 mg/dL (0.52-1.04) 10/28/18 06:20 Estimated Creat Clear 52 10/28/18 06:20 Est GFR ( Amer) > 60 (60-) 10/28/18 06:20 Est GFR (Non-Af Amer) > 60 (60-) 10/28/18 06:20 Glucose 120 mg/dL (74-106) H 10/28/18 06:20 Calcium 8.8 mg/dL (8.4-10.2) 10/28/18 06:20 Total Bilirubin 0.8 mg/dL (0.2-1.3) 10/28/18 06:20 AST 27 U/L (15-46) 10/28/18 06:20 ALT 22 U/L (13-69) 10/28/18 06:20 Alkaline Phosphatase 76 U/L (38-126) 10/28/18 06:20 Total Protein 6.3 g/dL (6.3-8.2) 10/28/18 06:20 Albumin 3.4 g/dL (3.5-5.0) L 10/28/18 06:20 Assessment/Plan - Assessment/Plan (1) Closed left humeral fracture Status: Acute Current Visit: Yes Qualifiers: Fracture morphology: comminuted Fracture healing: with routine healing Assessment: stable (2) Essential hypertension Status: Chronic Current Visit: Yes Assessment: stable on home meds (3) Sick sinus syndrome Status: Acute Current Visit: Yes Assessment: stable, no tachy or bradycardia (4) History of colon cancer Status: Resolved Current Visit: Yes Narrative Support Text: stable (5) Status post CVA Status: Resolved Current Visit: Yes Assessment: stable (6) Vestibular dysfunction Status: Chronic Current Visit: Yes Qualifiers: Laterality: unspecified laterality Qualified Code(s): H83.2X9 - Labyrinthine dysfunction, unspecified ear Assessment: stable, still causing some gait problems
[2018-11-04] MEDS: CITALOPRAM HYDROBROMIDE 20 MG TABLET PO SCH (18:18)
[2018-11-04] MEDS: ATORVASTATIN CALCIUM 20 MG TABLET PO SCH (19:54)
[2018-11-04] MEDS: ACETAMINOPHEN 500 MG TABLET PO PRN (19:54)
[2018-11-05] MEDS: PANTOPRAZOLE SODIUM 40 MG TABLET.DR PO SCH (05:37)
[2018-11-05] MEDS: ASPIRIN 81 MG CHEW TAB PO SCH (08:54)
[2018-11-05] MEDS: MULTIVITAMIN 1 EACH TABLET PO SCH (08:54)
[2018-11-05] MEDS: amLODIPine BESYLATE 5 MG TABLET PO SCH (08:54)
[2018-11-05] MEDS: GABAPENTIN 100 MG CAPSULE PO SCH ×3 (08:54→20:06)
[2018-11-05] MEDS: CHOLECALCIFEROL (VIT-D3) 1,000 UNIT TABLET PO SCH (08:54)
[2018-11-05] MEDS: ENOXAPARIN SODIUM 30 MG/0.3 ML DISP.SYRIN SQ SCH (08:55)
[2018-11-05] MEDS: ATORVASTATIN CALCIUM 20 MG TABLET PO SCH (20:06)
[2018-11-05] MEDS: CITALOPRAM HYDROBROMIDE 20 MG TABLET PO SCH (20:07)
[2018-11-05] MEDS: ACETAMINOPHEN 500 MG TABLET PO PRN (20:19)
[2018-11-06] MEDS: PANTOPRAZOLE SODIUM 40 MG TABLET.DR PO SCH (06:13)
[2018-11-06] MEDS: CHOLECALCIFEROL (VIT-D3) 1,000 UNIT TABLET PO SCH (08:27)
[2018-11-06] MEDS: MULTIVITAMIN 1 EACH TABLET PO SCH (08:27)
[2018-11-06] MEDS: GABAPENTIN 100 MG CAPSULE PO SCH ×3 (08:28→19:56)
[2018-11-06] MEDS: ASPIRIN 81 MG CHEW TAB PO SCH (08:28)
[2018-11-06] MEDS: amLODIPine BESYLATE 5 MG TABLET PO SCH (08:28)
[2018-11-06] MEDS: CITALOPRAM HYDROBROMIDE 20 MG TABLET PO SCH (18:19)
[2018-11-06] MEDS: ATORVASTATIN CALCIUM 20 MG TABLET PO SCH (19:56)
[2018-11-06] MEDS: ACETAMINOPHEN 500 MG TABLET PO PRN (20:08)
[2018-11-07] MEDS: PANTOPRAZOLE SODIUM 40 MG TABLET.DR PO SCH (06:22)
[2018-11-07] MEDS: MULTIVITAMIN 1 EACH TABLET PO SCH (09:12)
[2018-11-07] MEDS: ASPIRIN 81 MG CHEW TAB PO SCH (09:12)
[2018-11-07] MEDS: GABAPENTIN 100 MG CAPSULE PO SCH ×3 (09:13→20:51)
[2018-11-07] MEDS: CHOLECALCIFEROL (VIT-D3) 1,000 UNIT TABLET PO SCH (09:13)
[2018-11-07] MEDS: amLODIPine BESYLATE 5 MG TABLET PO SCH (09:16)
[2018-11-07] MEDS: CITALOPRAM HYDROBROMIDE 20 MG TABLET PO SCH (17:22)
[2018-11-07] MEDS: ATORVASTATIN CALCIUM 20 MG TABLET PO SCH (20:51)
[2018-11-07] MEDS: ACETAMINOPHEN 500 MG TABLET PO PRN (20:54)
[2018-11-08] MEDS: PANTOPRAZOLE SODIUM 40 MG TABLET.DR PO SCH (06:08)
[2018-11-08] MEDS: amLODIPine BESYLATE 5 MG TABLET PO SCH (08:03)
[2018-11-08] MEDS: MULTIVITAMIN 1 EACH TABLET PO SCH (08:04)
[2018-11-08] MEDS: CHOLECALCIFEROL (VIT-D3) 1,000 UNIT TABLET PO SCH (08:04)
[2018-11-08] MEDS: ASPIRIN 81 MG CHEW TAB PO SCH (08:04)
[2018-11-08] MEDS: GABAPENTIN 100 MG CAPSULE PO SCH ×3 (08:04→21:09)
[2018-11-08] MEDS: CITALOPRAM HYDROBROMIDE 20 MG TABLET PO SCH (18:34)
[2018-11-08] MEDS: ACETAMINOPHEN 500 MG TABLET PO PRN (21:09)
[2018-11-08] MEDS: ATORVASTATIN CALCIUM 20 MG TABLET PO SCH (21:09)
[2018-11-09] MEDS: PANTOPRAZOLE SODIUM 40 MG TABLET.DR PO SCH (06:20)
[2018-11-09] MEDS: MULTIVITAMIN 1 EACH TABLET PO SCH (09:45)
[2018-11-09] MEDS: CHOLECALCIFEROL (VIT-D3) 1,000 UNIT TABLET PO SCH (09:45)
[2018-11-09] MEDS: ASPIRIN 81 MG CHEW TAB PO SCH (09:45)
[2018-11-09] MEDS: GABAPENTIN 100 MG CAPSULE PO SCH ×3 (09:45→20:29)
[2018-11-09] MEDS: amLODIPine BESYLATE 5 MG TABLET PO SCH (09:45)
[2018-11-09] MEDS: CITALOPRAM HYDROBROMIDE 20 MG TABLET PO SCH (17:52)
[2018-11-09] MEDS: ATORVASTATIN CALCIUM 20 MG TABLET PO SCH (20:29)
[2018-11-09] MEDS: ACETAMINOPHEN 500 MG TABLET PO PRN (20:29)
[2018-11-10] MEDS: PANTOPRAZOLE SODIUM 40 MG TABLET.DR PO SCH (05:49)
[2018-11-10] MEDS: ASPIRIN 81 MG CHEW TAB PO SCH (10:09)
[2018-11-10] MEDS: amLODIPine BESYLATE 5 MG TABLET PO SCH (10:09)
[2018-11-10] MEDS: GABAPENTIN 100 MG CAPSULE PO SCH ×3 (10:09→20:44)
[2018-11-10] MEDS: CHOLECALCIFEROL (VIT-D3) 1,000 UNIT TABLET PO SCH (10:09)
[2018-11-10] MEDS: MULTIVITAMIN 1 EACH TABLET PO SCH (10:09)
[2018-11-10] MEDS: CITALOPRAM HYDROBROMIDE 20 MG TABLET PO SCH (18:16)
--- NOTE | 2018-11-10 19:23 | Inpatient Progress Note ---
Subjective - Required Recertification Statement I anticipate X number of days because-include discharge plan: 10 days - Review of Systems Events since last encounter: Patient seem to be doing well at this time. Patient is participating with physical and occupational therapy well. Patient continues to complain of some chronic dizziness did seem to be want of her limiting factors. General: Appetite (fair) Cardiovascular: Denies: Chest Pain, Palpitations Gastrointestinal: Constipation. Denies: Nausea, Vomiting, Abdominal Pain, Diarrhea Objective - Exam Vitals and I&O: Vital Signs Temp 97.6 F 11/10/18 09:00 Pulse 81 11/10/18 09:00 Resp 18 11/10/18 09:00 BP 120/50 11/10/18 09:00 Pulse Ox 99 11/10/18 09:00 Intake & Output 11/09/18 11/10/18 11/10/18 23:59 11:59 23:59 Intake Total 273 737 5198 Balance 695 814 2208 Intake: Oral 308 335 9654 Other: Voiding Method Toilet Toilet # Voids 3 4 # Bowel Movements 1 General: Alert, Oriented to Person, Oriented to Place, Oriented to Time, Cooperative Neck: Supple, No JVD Lungs: Clear to auscultation, Normal air movement, Speaks full Sentences, Prolonged Expiration Cardiovascular: Regular rate, Normal S1, Normal S2, No murmurs Abdomen: Normal bowel sounds, Soft, No tenderness Extremities: No clubbing, No cyanosis, No edema Skin: Normal, [place], Warm, Dry, Other (swelling tot he left hand is improving) Neurological: Normal speech, Strength Equal Bilat, Normal tone. No: Normal gait - Results Results: Laboratory Results WBC 6.20 K/ul (4.00-12.00) 10/28/18 06:20 RBC 3.35 M/ul (3.90-5.20) L 10/28/18 06:20 Hgb 9.7 g/dL (11.5-16.0) L 10/28/18 06:20 Hct 29.1 % (34.5-46.5) L 10/28/18 06:20 MCV 87.0 fl (80.0-100.0) 10/28/18 06:20 MCH 29.1 pg (28.0-34.0) 10/28/18 06:20 MCHC 33.4 g/dL (30.0-36.0) 10/28/18 06:20 RDW 13.4 % (11.3-14.3) 10/28/18 06:20 Plt Count 338 K/mm3 (130-400) 10/28/18 06:20 Neut % (Auto) 69.8 % (39.0-79.0) 10/28/18 06:20 Lymph % (Auto) 20.9 % (16.0-50.0) 10/28/18 06:20 [place] % (Auto) 7.0 % (0.0-11.0) 10/28/18 06:20 Eos % (Auto) 2.0 % (0.0-6.8) 10/28/18 06:20 Baso % (Auto) 0.3 % (0.0-1.5) 10/28/18 06:20 Neut # (Auto) 4.4 # k/uL (1.4-7.7) 10/28/18 06:20 Lymph # (Auto) 1.3 # k/uL (0.6-4.0) 10/28/18 06:20 [place] # (Auto) 0.4 # k/uL (0.0-0.9) 10/28/18 06:20 Eos # (Auto) 0.1 # k/uL (0.0-0.6) 10/28/18 06:20 Baso # (Auto) 0.0 # k/uL (0.0-0.5) 10/28/18 06:20 Sodium 139 mmol/L (137-145) 10/28/18 06:20 Potassium 3.8 mmol/L (3.5-5.1) 10/28/18 06:20 Chloride 103 mmol/L (98-107) 10/28/18 06:20 Carbon Dioxide 29 mmol/L (22-30) 10/28/18 06:20 Anion Gap 10.8 mmol/L (3-11) 10/28/18 06:20 BUN 15 mg/dL (7-17) 10/28/18 06:20 Creatinine 0.89 mg/dL (0.52-1.04) 10/28/18 06:20 Estimated Creat Clear 52 10/28/18 06:20 Est GFR ( Amer) > 60 (60-) 10/28/18 06:20 Est GFR (Non-Af Amer) > 60 (60-) 10/28/18 06:20 Glucose 120 mg/dL (74-106) H 10/28/18 06:20 Calcium 8.8 mg/dL (8.4-10.2) 10/28/18 06:20 Total Bilirubin 0.8 mg/dL (0.2-1.3) 10/28/18 06:20 AST 27 U/L (15-46) 10/28/18 06:20 ALT 22 U/L (13-69) 10/28/18 06:20 Alkaline Phosphatase 76 U/L (38-126) 10/28/18 06:20 Total Protein 6.3 g/dL (6.3-8.2) 10/28/18 06:20 Albumin 3.4 g/dL (3.5-5.0) L 10/28/18 06:20 Assessment/Plan - Assessment/Plan (1) Closed left humeral fracture Status: Acute Qualifiers: Fracture morphology: comminuted Fracture healing: with routine healing Assessment: Stable (2) Essential hypertension Status: Chronic Assessment: stable on home medications (3) Sick sinus syndrome Status: Acute (4) Vestibular dysfunction Status: Chronic Qualifiers: Laterality: unspecified laterality Qualified Code(s): H83.2X9 - Labyrinthine dysfunction, unspecified ear
--- NOTE | 2018-11-10 19:25 | Inpatient Progress Note ---
Subjective - Required Recertification Statement I anticipate X number of days because-include discharge plan: 21 - Review of Systems Events since last encounter: Patient seems to be doing well. Denies that she is having much pain at this time. Feel that her strength is getting better but she till feels off balance some. Has had BM, appetite seems to be OK. Gastrointestinal: Denies: Nausea, Vomiting, Abdominal Pain, Diarrhea, Constipation Objective - Exam Vitals and I&O: Vital Signs Temp 97.6 F 11/10/18 09:00 Pulse 81 11/10/18 09:00 Resp 18 11/10/18 09:00 BP 120/50 11/10/18 09:00 Pulse Ox 99 11/10/18 09:00 Intake & Output 11/09/18 11/10/18 11/10/18 23:59 11:59 23:59 Intake Total 649 111 9095 Balance 731 377 2201 Intake: Oral 833 032 2211 Other: Voiding Method Toilet Toilet # Voids 3 4 # Bowel Movements 1 General: Alert, Oriented to Person, Oriented to Place, Oriented to Time, Cooperative Lungs: Clear to auscultation, Normal air movement, Speaks full Sentences, Respiratory Distress Cardiovascular: Regular rate, Normal S1, Normal S2, No murmurs Abdomen: Normal bowel sounds, Soft, No tenderness, No hepatospenomegaly Skin: Normal, [place], Warm, Dry, Other (swelling and ecchymosis tot he LUE appear to be improved) Neurological: Normal gait, Normal speech, Strength Equal Bilat, Normal tone Psych/Mental Status: Mental status NL, Mood NL, Appropriate Affect - Results Results: Laboratory Results WBC 6.20 K/ul (4.00-12.00) 10/28/18 06:20 RBC 3.35 M/ul (3.90-5.20) L 10/28/18 06:20 Hgb 9.7 g/dL (11.5-16.0) L 10/28/18 06:20 Hct 29.1 % (34.5-46.5) L 10/28/18 06:20 MCV 87.0 fl (80.0-100.0) 10/28/18 06:20 MCH 29.1 pg (28.0-34.0) 10/28/18 06:20 MCHC 33.4 g/dL (30.0-36.0) 10/28/18 06:20 RDW 13.4 % (11.3-14.3) 10/28/18 06:20 Plt Count 338 K/mm3 (130-400) 10/28/18 06:20 Neut % (Auto) 69.8 % (39.0-79.0) 10/28/18 06:20 Lymph % (Auto) 20.9 % (16.0-50.0) 10/28/18 06:20 [place] % (Auto) 7.0 % (0.0-11.0) 10/28/18 06:20 Eos % (Auto) 2.0 % (0.0-6.8) 10/28/18 06:20 Baso % (Auto) 0.3 % (0.0-1.5) 10/28/18 06:20 Neut # (Auto) 4.4 # k/uL (1.4-7.7) 10/28/18 06:20 Lymph # (Auto) 1.3 # k/uL (0.6-4.0) 10/28/18 06:20 [place] # (Auto) 0.4 # k/uL (0.0-0.9) 10/28/18 06:20 Eos # (Auto) 0.1 # k/uL (0.0-0.6) 10/28/18 06:20 Baso # (Auto) 0.0 # k/uL (0.0-0.5) 10/28/18 06:20 Sodium 139 mmol/L (137-145) 10/28/18 06:20 Potassium 3.8 mmol/L (3.5-5.1) 10/28/18 06:20 Chloride 103 mmol/L (98-107) 10/28/18 06:20 Carbon Dioxide 29 mmol/L (22-30) 10/28/18 06:20 Anion Gap 10.8 mmol/L (3-11) 10/28/18 06:20 BUN 15 mg/dL (7-17) 10/28/18 06:20 Creatinine 0.89 mg/dL (0.52-1.04) 10/28/18 06:20 Estimated Creat Clear 52 10/28/18 06:20 Est GFR ( Amer) > 60 (60-) 10/28/18 06:20 Est GFR (Non-Af Amer) > 60 (60-) 10/28/18 06:20 Glucose 120 mg/dL (74-106) H 10/28/18 06:20 Calcium 8.8 mg/dL (8.4-10.2) 10/28/18 06:20 Total Bilirubin 0.8 mg/dL (0.2-1.3) 10/28/18 06:20 AST 27 U/L (15-46) 10/28/18 06:20 ALT 22 U/L (13-69) 10/28/18 06:20 Alkaline Phosphatase 76 U/L (38-126) 10/28/18 06:20 Total Protein 6.3 g/dL (6.3-8.2) 10/28/18 06:20 Albumin 3.4 g/dL (3.5-5.0) L 10/28/18 06:20 Assessment/Plan - Assessment/Plan (1) Closed left humeral fracture Status: Acute Current Visit: Yes Qualifiers: Fracture morphology: comminuted Fracture healing: with routine healing Assessment: stable, Has follow-up appointment next week (2) Essential hypertension Status: Chronic Current Visit: Yes Assessment: stable (3) Sick sinus syndrome Status: Acute Current Visit: Yes (4) History of colon cancer Status: Resolved Current Visit: Yes (5) Status post CVA Status: Resolved Current Visit: Yes (6) Vestibular dysfunction Status: Acute Current Visit: Yes Qualifiers: Laterality: unspecified laterality Qualified Code(s): H83.2X9 - Labyrinthine dysfunction, unspecified ear
--- NOTE | 2018-11-10 19:31 | Inpatient Progress Note ---
Subjective - Required Recertification Statement I anticipate X number of days because-include discharge plan: 2 weeks - Review of Systems Events since last encounter: Patient seem to be doing well at this time. Patient is participating with physical and occupational therapy well. Patient stated her pain has been well controlled. patient continues to have some vertigo type symptoms. Patient has had formal evaluations by ENT and neurology for this. The seem to be chronic in nature. HEENT: Denies: Head Aches, Visual Changes Pulmonary: Denies: Dyspnea, Cough Cardiovascular: Denies: [place] Gastrointestinal: Denies: Nausea, Vomiting, Abdominal Pain, Diarrhea, Constipation Objective - Exam Vitals and I&O: Vital Signs Temp 97.6 F 11/10/18 09:00 Pulse 81 11/10/18 09:00 Resp 18 11/10/18 09:00 BP 120/50 11/10/18 09:00 Pulse Ox 99 11/10/18 09:00 Intake & Output 11/09/18 11/10/18 11/10/18 23:59 11:59 23:59 Intake Total 390 610 9677 Balance 059 181 9085 Intake: Oral 078 036 2501 Other: Voiding Method Toilet Toilet # Voids 3 4 # Bowel Movements 1 General: Alert, Oriented to Person, Oriented to Place, Oriented to Time, Cooperative Neck: Supple, No JVD Lungs: Clear to auscultation, Normal air movement, Speaks full Sentences. No: Wheezes, Rales, Rhonchi Cardiovascular: Regular rate, Normal S1, Normal S2, No murmurs Abdomen: Normal bowel sounds, Soft, No tenderness, No hepatospenomegaly (him him him him him him him him him him him him him him him him him him him him him him him him him him him him him him him) Extremities: No clubbing, No cyanosis, Other Neurological: Normal gait (slightly ataxic), Normal speech, Strength Equal Bilat, Normal tone Psych/Mental Status: Mental status NL, Mood NL, Appropriate Affect - Results Results: Laboratory Results WBC 6.20 K/ul (4.00-12.00) 10/28/18 06:20 RBC 3.35 M/ul (3.90-5.20) L 10/28/18 06:20 Hgb 9.7 g/dL (11.5-16.0) L 10/28/18 06:20 Hct 29.1 % (34.5-46.5) L 10/28/18 06:20 MCV 87.0 fl (80.0-100.0) 10/28/18 06:20 MCH 29.1 pg (28.0-34.0) 10/28/18 06:20 MCHC 33.4 g/dL (30.0-36.0) 10/28/18 06:20 RDW 13.4 % (11.3-14.3) 10/28/18 06:20 Plt Count 338 K/mm3 (130-400) 10/28/18 06:20 Neut % (Auto) 69.8 % (39.0-79.0) 10/28/18 06:20 Lymph % (Auto) 20.9 % (16.0-50.0) 10/28/18 06:20 [place] % (Auto) 7.0 % (0.0-11.0) 10/28/18 06:20 Eos % (Auto) 2.0 % (0.0-6.8) 10/28/18 06:20 Baso % (Auto) 0.3 % (0.0-1.5) 10/28/18 06:20 Neut # (Auto) 4.4 # k/uL (1.4-7.7) 10/28/18 06:20 Lymph # (Auto) 1.3 # k/uL (0.6-4.0) 10/28/18 06:20 [place] # (Auto) 0.4 # k/uL (0.0-0.9) 10/28/18 06:20 Eos # (Auto) 0.1 # k/uL (0.0-0.6) 10/28/18 06:20 Baso # (Auto) 0.0 # k/uL (0.0-0.5) 10/28/18 06:20 Sodium 139 mmol/L (137-145) 10/28/18 06:20 Potassium 3.8 mmol/L (3.5-5.1) 10/28/18 06:20 Chloride 103 mmol/L (98-107) 10/28/18 06:20 Carbon Dioxide 29 mmol/L (22-30) 10/28/18 06:20 Anion Gap 10.8 mmol/L (3-11) 10/28/18 06:20 BUN 15 mg/dL (7-17) 10/28/18 06:20 Creatinine 0.89 mg/dL (0.52-1.04) 10/28/18 06:20 Estimated Creat Clear 52 10/28/18 06:20 Est GFR ( Amer) > 60 (60-) 10/28/18 06:20 Est GFR (Non-Af Amer) > 60 (60-) 10/28/18 06:20 Glucose 120 mg/dL (74-106) H 10/28/18 06:20 Calcium 8.8 mg/dL (8.4-10.2) 10/28/18 06:20 Total Bilirubin 0.8 mg/dL (0.2-1.3) 10/28/18 06:20 AST 27 U/L (15-46) 10/28/18 06:20 ALT 22 U/L (13-69) 10/28/18 06:20 Alkaline Phosphatase 76 U/L (38-126) 10/28/18 06:20 Total Protein 6.3 g/dL (6.3-8.2) 10/28/18 06:20 Albumin 3.4 g/dL (3.5-5.0) L 10/28/18 06:20 Assessment/Plan - Assessment/Plan (1) Closed left humeral fracture Status: Acute Current Visit: Yes Qualifiers: Fracture morphology: comminuted Fracture healing: with routine healing Assessment: patient has follow-up appointment with orthopedics next week. (2) Essential hypertension Status: Chronic Current Visit: Yes Assessment: stable on present medications. (3) Sick sinus syndrome Status: Acute Current Visit: Yes Assessment: stable (4) Vestibular dysfunction Status: Chronic Current Visit: Yes Qualifiers: Laterality: unspecified laterality Qualified Code(s): H83.2X9 - Labyrinthine dysfunction, unspecified ear Assessment: this continues to be a somewhat limiting factor in the patient's ability to ambulate independently.
[2018-11-10] MEDS: ACETAMINOPHEN 500 MG TABLET PO PRN (20:44)
[2018-11-10] MEDS: ATORVASTATIN CALCIUM 20 MG TABLET PO SCH (20:44)
[2018-11-11] MEDS: PANTOPRAZOLE SODIUM 40 MG TABLET.DR PO SCH (05:47)
[2018-11-11] MEDS: amLODIPine BESYLATE 5 MG TABLET PO SCH ×2 (08:21→09:44)
[2018-11-11] MEDS: CHOLECALCIFEROL (VIT-D3) 1,000 UNIT TABLET PO SCH (08:21)
[2018-11-11] MEDS: MULTIVITAMIN 1 EACH TABLET PO SCH (08:21)
[2018-11-11] MEDS: ASPIRIN 81 MG CHEW TAB PO SCH (08:21)
[2018-11-11] MEDS: GABAPENTIN 100 MG CAPSULE PO SCH ×3 (08:22→22:20)
[2018-11-11] MEDS: CITALOPRAM HYDROBROMIDE 20 MG TABLET PO SCH (18:12)
[2018-11-11] MEDS: ATORVASTATIN CALCIUM 20 MG TABLET PO SCH (22:21)
[2018-11-11] MEDS: ACETAMINOPHEN 500 MG TABLET PO PRN (22:23)
[2018-11-12] MEDS: PANTOPRAZOLE SODIUM 40 MG TABLET.DR PO SCH (06:30)
--- NOTE | 2018-11-12 07:36 | Discharge Summary ---
Discharge Summary - Discharge [facility] Admission Date: 10/21/18 (SNF) Discharge Date: 11/12/18 ([facility]) Discharge To: [facility] History of Present Illness: 83-year-old white female who on fell and sustained a left distal humeral fracture. Patient has fallen on the previous day and sustained some patient contusions. Patient does have a vestibular disturbance and does have fairly frequent falls related to this. Patient is currently living at home by herself does provide for all of her daily living cares herself him. Patient underwent an open reduction until fixation of her comminuted intra-articular distal fracture. Patient did not have any intraoperative for postoperative complications. Patient was transferred to this institution for further rehab services. Patient is right handed Condition at Discharge: Stable Home Medications: Ambulatory Orders Medication Instructions Recorded Gabapentin 1 tab PO DAILY 10/17/18 Acetaminophen [Pain Relief] 1,000 mg PO Q8 PRN 10/21/18 Aspirin 81 mg PO QDAY 10/21/18 Cholecalciferol (Vitamin D3) 2,000 unit PO DAILY 10/21/18 [Vitamin D3] Citalopram Hydrobromide [Celexa] 20 mg PO QD 10/21/18 Fesoterodine Fumarate [Toviaz] 4 mg PO HS 10/21/18 Multivit-Min/Iron/Folic/Lutein 1 each PO DAILY 10/21/18 [Centrum Silver Women Tablet] Consultations this Visit: None Procedures this Visit: None Allergies/Adverse Reactions: Allergies Allergy/AdvReac Type Severity Reaction Status Date / Time naproxen [From Naprosyn] Allergy Verified 10/13/18 10:45 Penicillins Allergy Rash Verified 10/23/18 12:38 Discharge Summary: Patient did well with participating with physical and occupational therapy. However due to the patient dizziness and instability with walking it was felt that she was not going to be able to return home at this time he could further benefit from some therapy in a [facility] setting. Patient chronic medical problems remain stable. Hypertension was stable without any chest pain chest pressure. Patient sick sinus syndrome remain stable without any tachycardia bradycardia. 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 At the time of dismissal patient was felt to be stable and was discharged to [facility]. - Final Diagnosis (1) Closed left humeral fracture Problems: Routine healing, she is being followed by ortho (2) Essential hypertension Problems: stable on home meds (3) Sick sinus syndrome Problems: stable (4) Vestibular dysfunction Problems: stable, no change
[2018-11-12] MEDS: ASPIRIN 81 MG CHEW TAB PO SCH (09:03)
[2018-11-12] MEDS: GABAPENTIN 100 MG CAPSULE PO SCH (09:03)
[2018-11-12] MEDS: amLODIPine BESYLATE 5 MG TABLET PO SCH (09:03)
[2018-11-12] MEDS: MULTIVITAMIN 1 EACH TABLET PO SCH (09:04)
[2018-11-12] MEDS: CHOLECALCIFEROL (VIT-D3) 1,000 UNIT TABLET PO SCH (09:05)
[2018-11-12 13:40] VITALS: BP 162/93
== END 2018-11-12 12:05 | DRG 561 ==
LOC: SOUTH 15:05
PROVIDERS: ADMIT Family Medicine; ATTEND Family Medicine
DX: S42.492D Other displaced fracture of lower end of left humerus, subsequent encounter for fracture with routine healing (principal); I10 Essential (primary) hypertension; I49.5 Sick sinus syndrome; H83.2X9 Labyrinthine dysfunction, unspecified ear; Z66 Do not resuscitate; Z91.81 History of falling; Z79.82 Long term (current) use of aspirin; Z79.899 Other long term (current) drug therapy; Z88.6 Allergy status to analgesic agent; Z86.73 Personal history of transient ischemic attack (TIA), and cerebral infarction without residual deficits; Z85.038 Personal history of other malignant neoplasm of large intestine; Z98.49 Cataract extraction status, unspecified eye; Z90.49 Acquired absence of other specified parts of digestive tract; Z95.0 Presence of cardiac pacemaker; Z88.0 Allergy status to penicillin; W19.XXXD Unspecified fall, subsequent encounter
CPT/HCPCS: 80053; 85025; 97110; 97112; 97116; 97161; 97165; 97530; 97535; A9270; J1650